=== PATIENT | female | born 1980 | race Caucasian/White ===

== ENCOUNTER → 2020-01-07 09:30 | Outpatient (BNVA) | payer OTHER, SELFPAY | PROVIDERS: Visit Provider Physician Assistant Medical | DX: S63.502D Unspecified sprain of left wrist, subsequent encounter (principal); X58.XXXD Exposure to other specified factors, subsequent encounter; M77.8 Other enthesopathies, not elsewhere classified | CPT/HCPCS: 99213 ==

== ENCOUNTER → 2024-08-18 12:57 | Outpatient (BNVA) | payer OTHER, SELFPAY | PROVIDERS: Visit Provider Registered Nurse | DX: S39.012A Strain of muscle, fascia and tendon of lower back, initial encounter (principal); X50.3XXA Overexertion from repetitive movements, initial encounter | CPT/HCPCS: 99202 ==

== ENCOUNTER → 2024-08-21 10:01 | Outpatient (BNVA) | payer OTHER, SELFPAY | PROVIDERS: Visit Provider Physician Assistant | DX: S39.012A Strain of muscle, fascia and tendon of lower back, initial encounter (principal); X50.3XXA Overexertion from repetitive movements, initial encounter | CPT/HCPCS: 99213 ==

== ENCOUNTER → 2024-08-28 11:07 | Outpatient (BNVA) | payer OTHER, SELFPAY | PROVIDERS: Visit Provider Physician Assistant | DX: S39.012A Strain of muscle, fascia and tendon of lower back, initial encounter (principal); X50.3XXA Overexertion from repetitive movements, initial encounter | CPT/HCPCS: 99213 ==

== ENCOUNTER → 2024-09-11 13:36 | Outpatient (BNVA) | payer OTHER, SELFPAY | PROVIDERS: Visit Provider Physician Assistant | DX: S39.012D Strain of muscle, fascia and tendon of lower back, subsequent encounter (principal); X50.3XXD Overexertion from repetitive movements, subsequent encounter | CPT/HCPCS: 99213 ==

== ENCOUNTER → 2024-09-23 10:21 | Outpatient (BNVA) | payer OTHER, SELFPAY | PROVIDERS: Visit Provider Physician Assistant | DX: M53.3 Sacrococcygeal disorders, not elsewhere classified (principal); S39.012D Strain of muscle, fascia and tendon of lower back, subsequent encounter; X50.3XXD Overexertion from repetitive movements, subsequent encounter | CPT/HCPCS: 99214 ==

== ENCOUNTER → 2024-10-07 09:37 | Outpatient (BNVA) | payer OTHER, SELFPAY | PROVIDERS: Visit Provider Physician Assistant | DX: M53.3 Sacrococcygeal disorders, not elsewhere classified (principal) | CPT/HCPCS: 99214 ==

== ENCOUNTER 2024-10-22 08:13 | Outpatient (REF) | payer OTHER, SELFPAY ==
--- NOTE | ~2024-10-22 | MR_ITS ---
EXAMINATION: MR LUMBAR SPINE WITHOUT CONTRAST CLINICAL INFORMATION: Right-sided SI joint pain. COMPARISON: No prior. TECHNIQUE: Multiplanar multisequence MR imaging of the lumbar spine was done without IV contrast. Examination was performed on a 1.5 Marcy Siemens magnet, utilizing standard sequences. FINDINGS: CORONAL ALIGNMENT: -Normal. SAGITTAL ALIGNMENT: - There is a normal lordosis. There are no subluxations. LUMBOSACRAL JUNCTION: -Normal. There are 5 [id number] lumbar-type vertebral bodies. VERTEBRAL BODIES/BONE MARROW: -There are no compression deformities, acute fractures, or suspicious bone lesions. -Are mildly prominent Schmorl's nodes in the superior and inferior endplates of L2, and the inferior endplate of T12. -There is no gross bone marrow edema, or abnormal infiltrating bone marrow signal. DISCS: -Mild loss of disc signal at L2-3 and L3-4. Minimal loss of disc height at L3-4. -Remainder of the intervertebral discs are normal in height and signal. SPINAL CANAL: -No abnormal developmental findings. CONUS MEDULLARIS: -Terminates at superior endplate of L1. Morphology and signal is normal. INTRADURAL NERVE ROOTS: - Normal appearance. No evidence of nerve root mass or abnormal clumping. Axial Disc Space Images: T12-L1: There is no central canal or neural foraminal narrowing. Normal facets. L1-L2: There is a shallow left lateral protrusion of disc material, minimally indenting upon the ventral left thecal sac and minimally narrowing the left subarticular recess. There is no central canal narrowing. There are mild degenerative hypertrophic facet changes bilaterally. There is no significant neural foraminal narrowing. L2-L3: There is a shallow concentric disc bulging present, with a superimposed small right lateral disc protrusion, indenting upon the ventral thecal sac but not contacting nerve roots. Mild hypertrophic degenerative facet changes bilaterally, with minimal posterior ligamentous thickening/infolding. There is mild central canal narrowing. There is mild right subarticular recess narrowing. There is minimal bilateral neural foraminal narrowing. L3-L4: There is a shallow concentric disc bulge present, which indents upon the ventral thecal sac but does not contact nerve roots. There is right paracentral annular fissuring. There are mild hypertrophic degenerative facet changes bilaterally. Findings are resulting in mild central canal narrowing, minimal bilateral subarticular recess narrowing, however no significant neural foraminal narrowing. L4-L5: There is a shallow concentric disc bulge present, indenting on the ventral thecal sac but not contacting nerve roots. There is minimal central canal narrowing. There is minimal left subarticular recess narrowing. Mild hypertrophic facet changes bilaterally with minimal posterior ligamentous thickening/infolding. There is mild bilateral neural foraminal narrowing left greater than right. L5-S1: Minimal disc bulging is present with a tiny central disc protrusion with central annular fissuring. There is no significant mass effect upon the thecal sac or subarticular recesses. Minimal hypertrophic degenerative facet changes. Neural foramina are patent bilaterally. IMAGED SI JOINTS: Mild degenerative arthritis bilaterally. No definite erosions or periarticular edema. PARAVERTEBRAL AND INCLUDED EXTRASPINAL SOFT TISSUES: Normal. MR/MR lumbar spine wo con IMPRESSION: 1. Mild multilevel spondylosis of the lumbar spine, without evidence of significant central canal, subarticular recess, or neural foraminal narrowing. 2. There are mild central disc annular fissures at L3-4, and L5-S1. 3. There are mild degenerative changes in both SI joints without erosions or periarticular edema. 4. See the body the report for details. Electronically signed by: Marcellus Barrera MD 10/22/2024 09:33 AM EDT
== END 2024-10-22 08:14 | disposition home or self-care (01) ==
LOC: HO.MRI 08:13
PROVIDERS: PCP Internal Medicine; Visit Provider Internal Medicine
DX: M53.3 Sacrococcygeal disorders, not elsewhere classified (principal); M54.50 Low back pain, unspecified
CPT/HCPCS: 72148

== ENCOUNTER → 2024-10-22 08:15 | Outpatient (BNV) | payer OTHER, SELFPAY | PROVIDERS: PCP Internal Medicine; Visit Provider Radiology Diagnostic Radiology | DX: M53.3 Sacrococcygeal disorders, not elsewhere classified (principal) | CPT/HCPCS: 72148 ==

== ENCOUNTER → 2024-10-23 13:09 | Outpatient (BNVA) | payer OTHER, SELFPAY | PROVIDERS: PCP Internal Medicine; Visit Provider Physician Assistant | DX: S39.012D Strain of muscle, fascia and tendon of lower back, subsequent encounter (principal); X50.3XXD Overexertion from repetitive movements, subsequent encounter; M53.3 Sacrococcygeal disorders, not elsewhere classified | CPT/HCPCS: 99213 ==

== ENCOUNTER → 2024-12-02 14:08 | Outpatient (BNVA) | payer OTHER, SELFPAY | PROVIDERS: PCP Internal Medicine; Visit Provider Physician Assistant | DX: S39.012D Strain of muscle, fascia and tendon of lower back, subsequent encounter (principal); X50.3XXD Overexertion from repetitive movements, subsequent encounter | CPT/HCPCS: 99213 ==

== ENCOUNTER → 2025-02-23 09:06 | Outpatient (BNVA) | payer OTHER, SELFPAY | PROVIDERS: PCP Internal Medicine; Visit Provider Physician Assistant Medical | DX: S39.012D Strain of muscle, fascia and tendon of lower back, subsequent encounter (principal); X50.3XXD Overexertion from repetitive movements, subsequent encounter | CPT/HCPCS: 99213 ==

== ENCOUNTER → 2025-03-17 15:12 | Outpatient (BNVA) | payer OTHER, SELFPAY | PROVIDERS: PCP Internal Medicine; Visit Provider Physician Assistant | DX: S39.012D Strain of muscle, fascia and tendon of lower back, subsequent encounter (principal); S33.6XXD Sprain of sacroiliac joint, subsequent encounter; X50.3XXD Overexertion from repetitive movements, subsequent encounter | CPT/HCPCS: 99213 ==